=== PATIENT | female | born 1990 | race Caucasian/White ===

== ENCOUNTER 2018-12-08 16:26 | Emergency (ER) | payer MEDICAID ==
[~2018-12-08] VITALS: Ht 154.9 cm; Wt 70.8 kg
--- NOTE | 2018-12-08 16:28 | NUR ---
CALLED FOR TRIAGE, UNABLE TO LOCATE PT.
--- NOTE | 2018-12-08 16:47 | NUR ---
CALLED FOR TRIAGE, UNABLE TO LOCATE PT.
--- NOTE | 2018-12-08 16:53 | NUR ---
BROUGHT BACK TO ER HALLWAY AND TRIAGED. REPORT GIVEN TO KAMRYN
[2018-12-08 16:56] VITALS: BP_SYST 103
--- NOTE | 2018-12-08 17:02 | NUR ---
MOVED TO BED 8. DR PALMER AT BEDSIDE FOR EVALUATION
--- NOTE | 2018-12-08 17:05 | NUR ---
Pt complains of abdominal pain for the past couple days, states went to urgent care and nothing was done. Pt denies painful urination. Denies n/v
[2018-12-08 18:59] VITALS: BP_SYST 105
--- NOTE | 2018-12-08 18:59 | NUR ---
Patient given written and verbal discharge instructions and verbalizes understanding. ER MD discussed with patient the results and treatment provided. Patient in stable condition. ID arm band removed. Rx of miralax given. Patient educated on pain management and to follow up with PMD. Pain Scale 0. Opportunity for questions provided and answered. Medication side effect fact sheet provided.
== END 2018-12-08 18:59 | disposition home or self-care (01) ==
LOC: SED 16:26
DX: K59.00 Constipation, unspecified (principal)
CPT/HCPCS: 74018; 81025; 99283